=== PATIENT | female | born 1945 | race Caucasian/White ===

== ENCOUNTER 2020-05-26 09:17 | Inpatient (IN) | payer MEDICARE, BC ==
[2020-05-26] MEDS ORDERED: Albuterol 8 GM Inhaler INH PRN (13:05)
--- NOTE | 2020-05-26 13:32 | PCM.HP.2 ---
H&P History of Present Illness - General Date of Service: 05/26/20 Admit Problem/Dx: Admission Diagnosis/Problem Admission Diagnosis/Problem Rehabilitation therapy Source of Information: Patient, Provider - History of Present Illness Initial Comments - Free Text/Narative: Lanette Florez underwent Lumbar fusion at [facility] on 05/21/20, has been doing well. Discharged with oxycodone & Tylenol as needed for pain. She asked surgeon about using Tylenol Arthritis and Salonpas patch to her right shoulder, has complete rotator cuff tear and he was fine with this. No NSAIDs(Motrin, Aleve, Celebrex, Mobic) for 3 months post surgery, her home naproxen was discontinued on discharge from [place]. She has 2 incision on left flank & back, wearing back brace when not in bed, no bending at the waist or twisting. Lifting restrictions of 15 pounds. She is to have her sutures out with Viviana Campo on Jun 03 at 9am at [facility]. Repeat Lumbar 2-3 view x-ray for July 07 9am. Second Covid vaccination for 06/13 at 1020am. She had her dressings removed in [place], okay to shower tomorrow. She had some diarrhea on Monday, held MiraLAX and Bisacodyl suppository, was discharged with Docusate bid. She had some difficulty with urinating, but has gone since Shabazz was pulled in [place]. - Related Data Home Medications: Home Meds Acetaminophen [Tylenol Arthritis] 650 mg PO BID PRN 05/26/20 [History] Albuterol [Ventolin HFA] 2 puff INH Q4H PRN 05/26/20 [History] Amoxicillin 2,000 mg PO ASDIRECTED PRN 05/26/20 [History] Aspirin [Halfprin] 243 mg PO DAILY 05/26/20 [History] Calcium Carbonate [Tums] 1,000 mg PO DAILY 05/26/20 [History] Cholecalciferol (Vitamin D3) [Vitamin D3] 1,000 unit PO DAILY 05/26/20 [History] Docusate Sodium 200 mg PO BID 05/26/20 [History] Gabapentin [Neurontin] 300 mg PO TID 05/26/20 [History] Levothyroxine 112 mcg PO DAILY@0600 05/26/20 [History] Losartan [Cozaar] 50 mg PO DAILY 05/26/20 [History] Multivitamin with Minerals [Multiple Vitamin] 1 tab PO DAILY 05/26/20 [History] Simvastatin 20 mg PO DAILY 05/26/20 [History] atenoloL [Atenolol] 50 mg PO DAILY 05/26/20 [History] metFORMIN [Glucophage] 500 mg PO BIDMEALS 05/26/20 [History] oxyCODONE 5 mg PO Q4H PRN 05/26/20 [History] tiZANidine [Zanaflex] 2 mg PO BID PRN 05/26/20 [History] Past Medical History - Past Surgical History Neurological Surgical History: Reports: Spinal Fusion (Lumbar: 05/21/20) H&P Review of Systems - Review of Systems: Review Of Systems: See Below General: Reports: No Symptoms HEENT: Reports: No Symptoms Pulmonary: Reports: No Symptoms Cardiovascular: Reports: No Symptoms Gastrointestinal: Reports: Abdominal Pain (suprapubic area:has to urinate) Genitourinary: Reports: No Symptoms Musculoskeletal: Reports: Shoulder Pain (right), Back Pain Skin: Reports: No Symptoms Psychiatric: Reports: No Symptoms Neurological: Reports: No Symptoms Hematologic/Lymphatic: Reports: No Symptoms Exam - Exam Exam: See Below - Exam General: Alert, Oriented, Cooperative. No: Mild Distress HEENT: PERRLA, Conjunctiva Clear, EOMI, Hearing Intact, Mucosa Moist & [place] Neck: Trachea Midline Lungs: Clear to Auscultation, Normal Respiratory Effort Cardiovascular: Regular Rate, Regular Rhythm GI/Abdominal Exam: Soft, No Distention, Tender (suprapubic area), Abnormal Bowel Sounds (hypoactive) (Female) Exam: Deferred Rectal (Female) Exam: Deferred Extremities: Pedal Edema (trace.) Peripheral Pulses: 2+: Radial (L), Radial (R) Skin: Incision (left flank & back), Other (Small scab with surrounding erythema on right medial ankle, NT.) *Q Meaningful Use (ADM) - VTE *Q VTE Mechanical Contraindications *Q: At Risk for Falls - VTE Risk Assess *Q Each Risk Factor Represents 1 Point: History of prior major surgery less than 1 month Total Score 1 Point Risk Factors: 1 Each Risk Factor Represents 2 Points: Age 60 - 74 Years, Major surgery greater than 45 minutes Total Score 2 Point Risk Factors: 4 Each Risk Factor Represents 3 Points: None Total Score 3 Point Risk Factors: 0 Each Risk Factor Represents 5 Points: None Total Score 5 Point Risk Factors: 0 Venous Thromboembolism Risk Factor Score *Q: 5 - Problem List (1) S/P lumbar spinal fusion SNOMED Code(s): 97765054466890, 86610878, 12087848472556 ICD Code: Z98.1 - ARTHRODESIS STATUS Status: Acute Current Visit: Yes Onset Date: ~05/21/20 (2) Diabetes SNOMED Code(s): 59293594 ICD Code: E11.9 - TYPE 2 DIABETES MELLITUS WITHOUT COMPLICATIONS Status: Chronic Current Visit: Yes (3) Rotator cuff tear arthropathy of right shoulder SNOMED Code(s): 77110558289725936 ICD Code: M75.101 - UNSP ROTATR-CUFF TEAR/RUPTR OF RIGHT SHOULDER, NOT TRAUMA; M12.811 - OTH SPECIFIC ARTHROPATHIES, NEC, RIGHT SHOULDER Status: Chronic Current Visit: Yes (4) Hypertension SNOMED Code(s): 30484246 ICD Code: I10 - ESSENTIAL (PRIMARY) HYPERTENSION Status: Chronic Current Visit: Yes (5) Hypothyroid SNOMED Code(s): 87220700 ICD Code: E03.9 - HYPOTHYROIDISM, UNSPECIFIED Status: Chronic Current Visit: Yes (6) Hyperlipemia SNOMED Code(s): 60786080 ICD Code: E78.5 - HYPERLIPIDEMIA, UNSPECIFIED Status: Chronic Current Visit: Yes Problem List Initiated/Reviewed/Updated: Yes Orders Last 24hrs: Active Orders 24 hr Category Date Time Status Patient Status [ADT] Routine ADT 05/26/20 12:52 Active Accu Check [Blood Glucose Check, Bedside] [RC] DAILY Care 05/27/20 07:00 Active Communication Order [RC] DAILY Care 05/26/20 12:52 Active Height and Weight [RC] WEEKLY Care 05/26/20 12:52 Active Oxygen Therapy [RC] PRN Care 05/26/20 12:52 Active RT Post Treatment Assessment [RC] Click to Edit Care 05/26/20 13:06 Active Up With Assistance [RC] ASDIRECTED Care 05/26/20 12:52 Active Up to Chair [RC] ASDIRECTED Care 05/26/20 12:52 Active VTE/DVT Education [RC] Per Unit Routine Care 05/26/20 12:52 Active Vital Signs [RC] PER UNIT ROUTINE Care 05/26/20 12:52 Active OT Evaluation and Treatment [CONS] Routine Cons 05/26/20 12:52 Active PT Evaluation and Treatment [CONS] Routine Cons 05/26/20 12:52 Active Consistent Carbohydrate Diet [DIET] Diet 05/26/20 Dinner Active Acetaminophen [Tylenol Arthritis Pain] Med 05/26/20 21:00 Active 650 mg PO BID Albuterol [Ventolin HFA] Med 05/26/20 13:05 Active 0 gm INH Q4H PRN Aspirin [Halfprin] Med 05/27/20 09:00 Active 243 mg PO DAILY Calcium Carbonate [Tums] Med 05/27/20 09:00 Active 1,000 mg PO DAILY Cholecalciferol (Vitamin D3) [Vitamin D3] Med 05/27/20 09:00 Active 25 mcg PO DAILY Docusate Sodium [Colace] Med 05/26/20 21:00 Active 200 mg PO BID Gabapentin [Neurontin] Med 05/26/20 14:00 Active 300 mg PO TID Levothyroxine Med 05/27/20 06:00 Active 112 mcg PO DAILY@0600 Losartan [Cozaar] Med 05/27/20 09:00 Active 50 mg PO DAILY Multivitamins w-Iron/Ca/FA/Min [Thera M Plus] Med 05/27/20 09:00 Active 1 tab PO DAILY Simvastatin [Zocor] Med 05/27/20 09:00 Active 20 mg PO DAILY atenoloL [Tenormin] Med 05/27/20 09:00 Active 50 mg PO DAILY metFORMIN [Glucophage] Med 05/26/20 18:00 Active 500 mg PO BIDMEALS oxyCODONE Med 05/26/20 13:05 Active 5 mg PO Q4H PRN tiZANidine [Zanaflex] Med 05/26/20 13:15 Active 2 mg PO BID PRN Antiembolic Hose [OM.PC] Per Unit Routine Oth 05/26/20 12:57 Ordered Resuscitation Status Routine Resus Stat 05/26/20 12:52 Ordered Medication Orders Acetaminophen (Tylenol Arthritis Pain) 650 mg PO BID ASHA Albuterol (Ventolin Hfa) 0 gm INH Q4H PRN PRN Reason: Cough Aspirin (Halfprin) 243 mg PO DAILY ASHA Atenolol (Tenormin) 50 mg PO DAILY [facility] Calcium Carbonate/Glycine (Tums) 1,000 mg PO DAILY ASHA Cholecalciferol (Vitamin D3) 25 mcg PO DAILY ASHA Docusate Sodium (Colace) 200 mg PO BID ASHA Gabapentin (Neurontin) 300 mg PO TID [facility] Levothyroxine Sodium (Levothyroxine) 112 mcg PO DAILY@0600 [facility] Losartan Potassium (Cozaar) 50 mg PO DAILY ASHA Metformin HCl (Glucophage) 500 mg PO BIDMEALS [facility] Multivitamins/Minerals (Thera M Plus) 1 tab PO DAILY [facility] Oxycodone HCl (Oxycodone) 5 mg PO Q4H PRN PRN Reason: moderate-severe pain Simvastatin (Zocor) 20 mg PO DAILY ASHA Tizanidine HCl (Zanaflex) 2 mg PO BID PRN PRN Reason: muscle spasms Assessment/Plan Comment:: 1. Admit to swing bed for rehab services s/p lumbar fusion on 05/21/20. 2. S/p lumbar fusion: PT/OT evaluate & treat, back brace on when out of bed, no bending or twisting at the waist. Lift restrictions of 15 pounds. Suture removal 06/03 at 9am with Viviana Campo at [facility]. Tylenol Arthritis 650 mg bid, oxycodone 5 mg q6h as needed. Docusate bid. Had dressing removed in [facility] to shower now. NO NSAIDS for 3 months post surgery. Follow up with Neurosurgery in 6 weeks, repeat lumbar x-rays on 07/07 at 9am at [facility]. Heat & ice therapy as needed. 3. Chronic right rotator cuff tear: Lidoderm 4% patch to area on 12 hours off 12 hours. 4. DM: Consistent carb diet, Accuchecks daily. 5. Activity: up to chair & with assistance. 6. DVT prophylaxis: Aspirin 243 mg daily. BLE TEDs. 7. CODE STATUS: FULL CODE. - Mortality Measure Prognosis:: Good
[2020-05-26] MEDS: oxyCODONE 5 MG Tab PO PRN ×3 (14:30→22:42)
[2020-05-26] MEDS: Gabapentin 300 MG Cap PO SCH ×2 (14:31→20:11)
[2020-05-26] MEDS: metFORMIN 500 MG Tab PO SCH (18:00)
[2020-05-26] MEDS: Lidocaine 4% 1 each Patch TOP SCH (20:11)
[2020-05-26] MEDS: Acetaminophen 650 MG Tab.ER PO SCH (20:12)
[2020-05-26] MEDS: Docusate Sodium 100 MG Cap PO SCH (20:12)
[2020-05-26] MEDS: tiZANidine 4 MG Tab PO PRN (20:12)
[2020-05-27] MEDS: oxyCODONE 5 MG Tab PO PRN ×4 (02:44→20:05)
[2020-05-27] MEDS ORDERED: Acetaminophen 325 MG Tab PO PRN (04:52)
[2020-05-27] MEDS: Levothyroxine 112 MCG Tab PO SCH (05:10)
[2020-05-27] MEDS: tiZANidine 4 MG Tab PO PRN ×2 (06:28→21:15)
[2020-05-27] MEDS: metFORMIN 500 MG Tab PO SCH ×2 (09:30→17:21)
[2020-05-27] MEDS: Aspirin 81 MG Tab.EC PO SCH (09:30)
[2020-05-27] MEDS: Multivitamins with Iron/Calcium/Folic Acid/Minerals Tab PO SCH (09:31)
[2020-05-27] MEDS: Docusate Sodium 100 MG Cap PO SCH ×2 (09:32→22:00)
[2020-05-27] MEDS: Calcium Carbonate 500 MG Tab.Chew PO SCH (09:33)
[2020-05-27] MEDS: Cholecalciferol (Vitamin D3) 25 MCG Tab PO SCH (09:33)
[2020-05-27] MEDS: Simvastatin 20 MG Tab PO SCH (09:33)
[2020-05-27] MEDS: Losartan 50 MG Tab PO SCH (09:36)
[2020-05-27] MEDS: Gabapentin 300 MG Cap PO SCH ×3 (09:36→20:05)
[2020-05-27] MEDS: Atenolol 50 MG Tab PO SCH (09:37)
[2020-05-27] MEDS: Acetaminophen 650 MG Tab.ER PO SCH ×3 (10:06→22:00)
[2020-05-27] MEDS: Lidocaine 4% 1 each Patch TOP SCH (20:06)
[2020-05-27] MEDS ORDERED: oxyCODONE 5 MG Tab PO STA (22:41)
[2020-05-28] MEDS: oxyCODONE 5 MG Tab PO PRN ×4 (03:39→21:11)
[2020-05-28] MEDS: Acetaminophen 650 MG Tab.ER PO SCH ×3 (05:00→21:01)
[2020-05-28] MEDS: Levothyroxine 112 MCG Tab PO SCH (06:22)
[2020-05-28] MEDS: Gabapentin 300 MG Cap PO SCH ×3 (08:08→20:56)
[2020-05-28] MEDS: Docusate Sodium 100 MG Cap PO SCH ×2 (08:09→20:59)
[2020-05-28] MEDS: metFORMIN 500 MG Tab PO SCH ×2 (08:09→18:28)
[2020-05-28] MEDS: Aspirin 81 MG Tab.EC PO SCH (08:10)
[2020-05-28] MEDS: Multivitamins with Iron/Calcium/Folic Acid/Minerals Tab PO SCH (08:10)
[2020-05-28] MEDS: Calcium Carbonate 500 MG Tab.Chew PO SCH (08:10)
[2020-05-28] MEDS: Cholecalciferol (Vitamin D3) 25 MCG Tab PO SCH (08:11)
[2020-05-28] MEDS: Losartan 50 MG Tab PO SCH (08:11)
[2020-05-28] MEDS: Simvastatin 20 MG Tab PO SCH (08:11)
[2020-05-28] MEDS: Atenolol 50 MG Tab PO SCH (08:12)
[2020-05-28] MEDS: Perform Pain Reliever Gel 89 ML Tube TP SCH ×2 (18:23→21:00)
[2020-05-28] MEDS: tiZANidine 4 MG Tab PO PRN (21:43)
[2020-05-29] MEDS: oxyCODONE 5 MG Tab PO PRN ×4 (01:54→22:03)
[2020-05-29] MEDS: tiZANidine 4 MG Tab PO PRN (03:40)
[2020-05-29] MEDS: Acetaminophen 650 MG Tab.ER PO SCH ×3 (05:00→20:55)
[2020-05-29] MEDS: Levothyroxine 112 MCG Tab PO SCH (05:59)
[2020-05-29] MEDS: metFORMIN 500 MG Tab PO SCH ×2 (07:52→17:19)
[2020-05-29] MEDS: Docusate Sodium 100 MG Cap PO SCH ×2 (08:01→20:54)
[2020-05-29] MEDS: Atenolol 50 MG Tab PO SCH (08:01)
[2020-05-29] MEDS: Calcium Carbonate 500 MG Tab.Chew PO SCH (08:05)
[2020-05-29] MEDS: Cholecalciferol (Vitamin D3) 25 MCG Tab PO SCH (08:06)
[2020-05-29] MEDS: Simvastatin 20 MG Tab PO SCH (08:06)
[2020-05-29] MEDS: Losartan 50 MG Tab PO SCH (08:06)
[2020-05-29] MEDS: Multivitamins with Iron/Calcium/Folic Acid/Minerals Tab PO SCH (08:07)
[2020-05-29] MEDS: Perform Pain Reliever Gel 89 ML Tube TP SCH ×4 (08:07→20:54)
[2020-05-29] MEDS: Aspirin 81 MG Tab.EC PO SCH (08:07)
[2020-05-29] MEDS: Gabapentin 300 MG Cap PO SCH (08:23)
--- NOTE | 2020-05-29 13:40 | PN ---
DATE SEEN: 05/29/2020 SUBJECTIVE: Lanette Robles is a 74-year-old female in swing bed. She had a lumbar fusion on 05/21/2020. A couple of issues; pain is not controlled, nighttime awakening, inadequate sleep pattern. Reviewed her medications and noted findings. OBJECTIVE: VITAL SIGNS: 36.7, 124/73, 18, 98% on room air. GENERAL: Appears comfortable. NECK: Benign. Thyroid small. CHEST: Clear in all lung valencia. HEART: No ectopy or murmur. ABDOMEN: Benign. Brace in place. We will look at wound tomorrow. ASSESSMENT: Lumbar fusion, inadequate pain control, and insomnia. PLAN: Increase gabapentin to 600 t.i.d., trazodone 25 mg at bedtime, and Zanaflex 2 mg b.i.d. Complementary care and well being. /[id number] SANYA/ALLISON
[2020-05-29] MEDS: Gabapentin 600 MG Tab PO SCH ×2 (13:42→20:52)
--- NOTE | 2020-05-29 19:00 | HP ---
ADMISSION DATE: 05/26/2020 HISTORY OF PRESENT ILLNESS: Lanette Robles is a delightful 74-year-old female seen today for swing bed stay. Doing well. She underwent a lumbar fusion on 05/21/2020. Has a 15-pound weight limit. Sugars have been noted; 169, 184, and 168. DAILY MEDICATIONS: Include: 1. High-strength Tylenol 1300 mg t.i.d. 2. Aspirin 243 mg daily. 3. Atenolol 50 mg 1 p.o. daily blood pressure/heart rate. 4. Calcium carbonate. 5. Vitamin D3. 6. Docusate. 7. Gabapentin 300 mg t.i.d. pain. 8. Levothyroxine 112 mcg 1 p.o. daily for hypothyroidism. 9. Losartan 50 mg 1 p.o. daily for blood pressure. 10.Metformin 500 mg b.i.d. for NIDDM. 11.Oxycodone 5 mg q.4 hours for moderate pain. 12.Simvastatin 20 mg 1 p.o. daily for hyperlipidemia. 13.Zanaflex 2 mg b.i.d. p.r.n. muscle relaxant. 14.Lidocaine gel, which had been discontinued. PHYSICAL EXAMINATION: VITAL SIGNS: Stable; 36.9, 82, 124/73, 18, and 90. GENERAL: Appears comfortable. NECK: Benign. Thyroid small. CHEST: Clear in all lung valencia. HEART: No ectopy or murmur. ABDOMEN: Benign. BACK: Incisions dry and healing well. ASSESSMENT: Lumbar fusion. PLAN: We will watch sugars closely. Cooperative care and well being. Not been sleeping, we will consider sleep adjunctives to complement. /[id number] SANYA/ALLISON
[2020-05-29] MEDS ORDERED: traZODone 50 MG Tab PO SCH (21:00)
[2020-05-29] MEDS: tiZANidine 4 MG Tab PO SCH (21:01)
[2020-05-30] MEDS: oxyCODONE 5 MG Tab PO PRN ×4 (03:10→20:03)
[2020-05-30] MEDS: Acetaminophen 650 MG Tab.ER PO SCH ×3 (05:10→20:04)
[2020-05-30] MEDS: Levothyroxine 112 MCG Tab PO SCH (05:10)
[2020-05-30] MEDS: metFORMIN 500 MG Tab PO SCH ×2 (08:02→17:48)
[2020-05-30] MEDS: Gabapentin 600 MG Tab PO SCH ×3 (08:33→20:03)
[2020-05-30] MEDS: Docusate Sodium 100 MG Cap PO SCH ×2 (08:34→20:04)
[2020-05-30] MEDS: tiZANidine 4 MG Tab PO SCH ×2 (08:35→20:04)
[2020-05-30] MEDS: Losartan 50 MG Tab PO SCH (08:37)
[2020-05-30] MEDS: Perform Pain Reliever Gel 89 ML Tube TP SCH ×4 (08:38→20:04)
[2020-05-30] MEDS: Atenolol 50 MG Tab PO SCH (08:39)
[2020-05-30] MEDS: Aspirin 81 MG Tab.EC PO SCH (08:39)
[2020-05-30] MEDS: Multivitamins with Iron/Calcium/Folic Acid/Minerals Tab PO SCH (08:42)
[2020-05-30] MEDS: Calcium Carbonate 500 MG Tab.Chew PO SCH (08:42)
[2020-05-30] MEDS: Cholecalciferol (Vitamin D3) 25 MCG Tab PO SCH (08:43)
[2020-05-30] MEDS: Simvastatin 20 MG Tab PO SCH (08:45)
--- NOTE | 2020-05-30 11:05 | PN ---
DATE SEEN: 05/30/2020 SUBJECTIVE: Lanette Robles is a delightful 74-year-old female in swing bed. Had a lumbar fusion, two incisions, mid back, 05/21/2020. Sugars have been reasonable. 15 pounds weight limit. Pain is an issue, spasm is an issue, sleep is an issue. We increased her gabapentin from 300 mg t.i.d. to 600 t.i.d., added trazodone 25 at bedtime, and Zanaflex 2 mg b.i.d. Still had a difficult night. No other particular complaints. Pain appears to be well controlled. Pain medications on board include 1300 mg of Tylenol 3 times per day, 3900 mg satisfactory. OBJECTIVE: VITAL SIGNS: 124/74, pulse 83, and respirations 16. GENERAL: Appears comfortable. NECK: Benign. Thyroid small. CHEST: Clear in all lung valencia. HEART: No ectopy or murmurs. ABDOMEN: Benign. Incisions healing well. ASSESSMENT: 1. Lumbar fusion. 2. Pain, reasonable control. 3. Insomnia. PLAN: We will increase trazodone to 50 at bedtime, pain medications on board appropriate. We will observe accordingly. /[id number] SANYA/ALLISON
[2020-05-30] MEDS: traZODone 50 MG Tab PO SCH (20:03)
[2020-05-31] MEDS: oxyCODONE 5 MG Tab PO PRN ×4 (02:06→22:04)
[2020-05-31] MEDS: Levothyroxine 112 MCG Tab PO SCH (05:20)
[2020-05-31] MEDS: Acetaminophen 650 MG Tab.ER PO SCH ×3 (05:20→20:16)
[2020-05-31] MEDS: Perform Pain Reliever Gel 89 ML Tube TP SCH ×4 (08:02→20:16)
[2020-05-31] MEDS: metFORMIN 500 MG Tab PO SCH ×2 (08:05→17:54)
[2020-05-31] MEDS: Docusate Sodium 100 MG Cap PO SCH ×2 (08:05→20:16)
[2020-05-31] MEDS: Atenolol 50 MG Tab PO SCH (08:06)
[2020-05-31] MEDS: Calcium Carbonate 500 MG Tab.Chew PO SCH (08:07)
[2020-05-31] MEDS: Losartan 50 MG Tab PO SCH (08:08)
[2020-05-31] MEDS: Multivitamins with Iron/Calcium/Folic Acid/Minerals Tab PO SCH (08:08)
[2020-05-31] MEDS: tiZANidine 4 MG Tab PO SCH ×2 (08:09→20:17)
[2020-05-31] MEDS: Simvastatin 20 MG Tab PO SCH (08:10)
[2020-05-31] MEDS: Cholecalciferol (Vitamin D3) 25 MCG Tab PO SCH (08:11)
[2020-05-31] MEDS: Aspirin 81 MG Tab.EC PO SCH (08:11)
[2020-05-31] MEDS: Gabapentin 600 MG Tab PO SCH ×3 (08:22→20:15)
[2020-05-31] MEDS: traZODone 50 MG Tab PO SCH (20:16)
[2020-06-01] MEDS: oxyCODONE 5 MG Tab PO PRN ×3 (04:23→20:10)
[2020-06-01] MEDS: Acetaminophen 650 MG Tab.ER PO SCH ×3 (04:23→20:05)
[2020-06-01] MEDS: Levothyroxine 112 MCG Tab PO SCH (05:05)
--- NOTE | 2020-06-01 07:17 | PN ---
DATE SEEN: 05/31/2020 SUBJECTIVE: Lanette Robles is a delightful 74-year-old female in today for swing bed. Pain is controlled by gabapentin, oxycodone, and Tylenol. Sleep has been much improved. We will increase her gabapentin from 300 t.i.d. to 600 t.i.d., trazodone from 25 to 50. Unable to be in bed more than about 3 hours. Sugars have been reasonable. MEDICATIONS: Reviewed and appropriate. OBJECTIVE: NECK: Benign. CHEST: Clear in all lung valencia. HEART: No ectopy or murmurs. ABDOMEN: Benign. Wounds were examined in the lateral left abdomen, mid abdomen, lower abdomen, and mid back. There are still 4 darrius on the right lower back over the SI joint, one staple on the left side SI joint region. Plan is for removal. ASSESSMENT: 1. Lumbar fusion, incision is healing well. 2. Insomnia, improving. PLAN: Medications, care, and treatment appropriate, no changes. Proceed accordingly. /[id number] SANYA/ALLISON
[2020-06-01] MEDS: Perform Pain Reliever Gel 89 ML Tube TP SCH ×4 (08:11→20:06)
[2020-06-01] MEDS: metFORMIN 500 MG Tab PO SCH ×2 (08:11→18:16)
[2020-06-01] MEDS: Gabapentin 600 MG Tab PO SCH ×3 (08:11→20:06)
[2020-06-01] MEDS: Cholecalciferol (Vitamin D3) 25 MCG Tab PO SCH (08:12)
[2020-06-01] MEDS: Simvastatin 20 MG Tab PO SCH (08:13)
[2020-06-01] MEDS: Multivitamins with Iron/Calcium/Folic Acid/Minerals Tab PO SCH (08:13)
[2020-06-01] MEDS: Losartan 50 MG Tab PO SCH (08:14)
[2020-06-01] MEDS: Atenolol 50 MG Tab PO SCH (08:15)
[2020-06-01] MEDS: Docusate Sodium 100 MG Cap PO SCH ×2 (08:15→20:01)
[2020-06-01] MEDS: Aspirin 81 MG Tab.EC PO SCH (08:15)
[2020-06-01] MEDS: tiZANidine 4 MG Tab PO SCH ×2 (08:16→20:05)
[2020-06-01] MEDS: Calcium Carbonate 500 MG Tab.Chew PO SCH (08:16)
--- NOTE | 2020-06-01 11:10 | PN ---
DATE SEEN: 06/01/2020 SUBJECTIVE: Lanette Robles is a 74-year-old female in swing bed. Had a lumbar fusion in [place], 05/21. Two incisions. She is on moderated weight limit. Sleeping much better with trazodone. Pain is controlled with oral medications including p.r.n. oxycodone and gabapentin 600 mg t.i.d. Otherwise, doing well. PHYSICAL EXAMINATION: VITAL SIGNS: 146/76, 77, 16, 100%. GENERAL: Appears comfortable. NECK: Benign. Thyroid small. CHEST: Clear in all lung valencia. HEART: No ectopy. Soft murmur. ABDOMEN: Benign. Incisions healing well. ASSESSMENT: Postoperative care, lumbar fusion. PLAN: Medications, care, and treatment on board. Pain medications and sleep much improved. /[id number] SANYA/ALLISON
[2020-06-01] MEDS: traZODone 50 MG Tab PO SCH (20:06)
[2020-06-02] MEDS: Acetaminophen 650 MG Tab.ER PO SCH ×3 (04:14→20:31)
[2020-06-02] MEDS: Levothyroxine 112 MCG Tab PO SCH (05:14)
[2020-06-02] MEDS: oxyCODONE 5 MG Tab PO PRN ×3 (07:41→21:03)
[2020-06-02] MEDS: metFORMIN 500 MG Tab PO SCH ×2 (07:42→17:48)
[2020-06-02] MEDS: Docusate Sodium 100 MG Cap PO SCH ×2 (09:01→20:33)
[2020-06-02] MEDS: Losartan 50 MG Tab PO SCH (09:02)
[2020-06-02] MEDS: Gabapentin 600 MG Tab PO SCH ×3 (09:03→20:32)
[2020-06-02] MEDS: Aspirin 81 MG Tab.EC PO SCH (09:03)
[2020-06-02] MEDS: Perform Pain Reliever Gel 89 ML Tube TP SCH ×4 (09:04→20:32)
[2020-06-02] MEDS: Atenolol 50 MG Tab PO SCH (09:05)
[2020-06-02] MEDS: Calcium Carbonate 500 MG Tab.Chew PO SCH (09:06)
[2020-06-02] MEDS: Multivitamins with Iron/Calcium/Folic Acid/Minerals Tab PO SCH (09:06)
[2020-06-02] MEDS: Cholecalciferol (Vitamin D3) 25 MCG Tab PO SCH (09:06)
[2020-06-02] MEDS: tiZANidine 4 MG Tab PO SCH ×2 (09:07→20:31)
[2020-06-02] MEDS: Simvastatin 20 MG Tab PO SCH (09:08)
--- NOTE | 2020-06-02 10:51 | PN ---
DATE SEEN: 06/02/2020 SUBJECTIVE: Lanette Robles is a delightful, 74-year-old female, seen today for review. Had lumbar fusion on May 21. Doing well. Sugars have been stable. Pain is controlled with gabapentin, arthritis strength Tylenol, using oxycodone infrequently. Sleep has been much improved with increased dose of gabapentin and trazodone. Voiding well, stooling well. OBJECTIVE: VITAL SIGNS: 36.7, 78, 105/62, 16, and 98%. GENERAL: Appears well. NECK: Benign. Thyroid small. CHEST: Clear in all lung valencia. HEART: No ectopy or murmur. ABDOMEN: Benign. Wound is healing well. ASSESSMENT: Postoperative care, lumbar disk surgery, fusion. PLAN: Medications, care, and treatment appropriate, all going well. /[id number] SANYA/ALLISON
[2020-06-02] MEDS: traZODone 50 MG Tab PO SCH (20:32)
[2020-06-03] MEDS: oxyCODONE 5 MG Tab PO PRN ×4 (03:43→22:59)
[2020-06-03] MEDS: Acetaminophen 650 MG Tab.ER PO SCH ×3 (04:03→20:29)
[2020-06-03] MEDS: Levothyroxine 112 MCG Tab PO SCH (05:01)
[2020-06-03] MEDS: Gabapentin 600 MG Tab PO SCH ×3 (08:21→20:30)
[2020-06-03] MEDS: tiZANidine 4 MG Tab PO SCH ×2 (08:22→20:31)
[2020-06-03] MEDS: Simvastatin 20 MG Tab PO SCH (08:23)
[2020-06-03] MEDS: Aspirin 81 MG Tab.EC PO SCH (08:23)
[2020-06-03] MEDS: Cholecalciferol (Vitamin D3) 25 MCG Tab PO SCH (08:23)
[2020-06-03] MEDS: Multivitamins with Iron/Calcium/Folic Acid/Minerals Tab PO SCH (08:23)
[2020-06-03] MEDS: metFORMIN 500 MG Tab PO SCH ×2 (08:24→17:03)
[2020-06-03] MEDS: Calcium Carbonate 500 MG Tab.Chew PO SCH (08:24)
[2020-06-03] MEDS: Perform Pain Reliever Gel 89 ML Tube TP SCH ×4 (08:24→20:32)
[2020-06-03] MEDS: Losartan 50 MG Tab PO SCH (08:25)
[2020-06-03] MEDS: Atenolol 50 MG Tab PO SCH (08:26)
[2020-06-03] MEDS: Docusate Sodium 100 MG Cap PO SCH ×2 (08:26→20:30)
--- NOTE | 2020-06-03 11:37 | PN ---
DATE SEEN: 06/03/2020 SUBJECTIVE: Lanette Robles is a 74-year-old female seen today for review in swing bed. Had previous lumbar surgery. Nikky were removed from lower back, 4, by nursing staff today. Wound to be examined today. Glucoses have been satisfactory, 179, 135, and 136. Medications reviewed and appropriate. Increase gabapentin from 300 t.i.d. to 600 t.i.d., trazodone 25 to 50 at bedtime, and Zanaflex 2 mg b.i.d., muscle relaxant, doing well in that regard. OBJECTIVE: VITAL SIGNS: 36.8, 78, 123/71, 20, and 96%. GENERAL: In good spirits. Sitting in her chair. NECK: Benign. Thyroid small. CHEST: Clear in all lung valencia. HEART: Distant heart sounds. Soft murmur, occasional ectopy. ABDOMEN: Benign. Surgical wound reviewed and satisfactory. ASSESSMENT: Postoperative care, lumbar fusion. PLAN: Medications, care, and treatment appropriate. Plan discharge tomorrow, . /[id number] /ALLISON
[2020-06-03] MEDS: traZODone 50 MG Tab PO SCH (20:30)
[2020-06-04] MEDS: Acetaminophen 650 MG Tab.ER PO SCH ×2 (04:03→12:42)
[2020-06-04] MEDS: Levothyroxine 112 MCG Tab PO SCH (05:01)
[2020-06-04] MEDS: oxyCODONE 5 MG Tab PO PRN ×2 (08:21→15:59)
[2020-06-04] MEDS: Cholecalciferol (Vitamin D3) 25 MCG Tab PO SCH (08:22)
[2020-06-04] MEDS: Multivitamins with Iron/Calcium/Folic Acid/Minerals Tab PO SCH (08:22)
[2020-06-04] MEDS: Gabapentin 600 MG Tab PO SCH ×2 (08:22→14:11)
[2020-06-04] MEDS: Simvastatin 20 MG Tab PO SCH (08:23)
[2020-06-04] MEDS: metFORMIN 500 MG Tab PO SCH (08:24)
[2020-06-04] MEDS: Losartan 50 MG Tab PO SCH (08:24)
[2020-06-04] MEDS: Aspirin 81 MG Tab.EC PO SCH (08:25)
[2020-06-04] MEDS: Docusate Sodium 100 MG Cap PO SCH (08:25)
[2020-06-04] MEDS: Atenolol 50 MG Tab PO SCH (08:25)
[2020-06-04] MEDS: Calcium Carbonate 500 MG Tab.Chew PO SCH (08:26)
[2020-06-04] MEDS: Perform Pain Reliever Gel 89 ML Tube TP SCH ×2 (08:26→12:41)
[2020-06-04] MEDS: tiZANidine 4 MG Tab PO SCH (08:27)
--- NOTE | 2020-06-04 12:47 | DISCH ---
DISCHARGE DATE: 06/04/2020 DISCHARGE DIAGNOSIS: Rehab lumbar spine fusion. HISTORY: Lanette Robles is a delightful 74-year-old female who was admitted to swing bed. She had undergone a lumbar fusion on 05/11/2020. A 15- pound weight limit. Please see admitting history and physical. During her hospital stay, wound care was provided. Nikky were removed day prior to discharge. PT was actively involved with ambulation skills and strengthening, transfer stairs and intervention. All went well in that regard. Laboratory studies of significance, only had done sugars 158, 179, 135, 136, and 128. DISCHARGE PHYSICAL EXAMINATION: VITAL SIGNS: 37 degrees Fahrenheit, 77 is the pulse, 131/82 is the blood pressure, 20 is the respirations, 98%. GENERAL: Young lady, cooperative, conversant, appears her stated age. HEENT: Unremarkable. NECK: Supple. Thyroid small. CHEST: Clear in all lung valencia. HEART: No ectopy or murmur. ABDOMEN: Benign. Incision in lower back and drain sites intact. PLAN: Discharge home, has followup appointment with Viviana Campo in mid June, has appointment with her neurosurgical provider in mid July. DISCHARGE MEDICATIONS: Timing appropriate. Please see med recon list. SURGICAL PROCEDURES: None. CONSULTATIONS: None. /[id number] SANYA/ALLISON
== END 2020-06-04 17:10 | disposition home health service (06) | DRG 561 ==
LOC: FB.MS 12:18
PROVIDERS: ADMIT Family Medicine; ATTEND Family Medicine
DX: Z47.89 Encounter for other orthopedic aftercare (principal); Z98.1 Arthrodesis status; E03.9 Hypothyroidism, unspecified; E11.9 Type 2 diabetes mellitus without complications; I10 Essential (primary) hypertension; E78.5 Hyperlipidemia, unspecified; M75.101 Unspecified rotator cuff tear or rupture of right shoulder, not specified as traumatic; M54.41 Lumbago with sciatica, right side; E78.2 Mixed hyperlipidemia; G47.00 Insomnia, unspecified; Z86.73 Personal history of transient ischemic attack (TIA), and cerebral infarction without residual deficits; Z90.49 Acquired absence of other specified parts of digestive tract; Z88.6 Allergy status to analgesic agent; Z88.1 Allergy status to other antibiotic agents; Z88.8 Allergy status to other drugs, medicaments and biological substances; Z79.890 Hormone replacement therapy; Z79.84 Long term (current) use of oral hypoglycemic drugs; Z79.899 Other long term (current) drug therapy; Z79.82 Long term (current) use of aspirin
CPT/HCPCS: 82962; 97110-GO; 97110-GP; 97116-GP; 97161-GP; 97166-GO; 97530-GO; 97530-GP; 97535-GO; A9270-GY